=== PATIENT | male | born 2000 | race Hispanic/Latino ===

== ENCOUNTER 2024-06-17 17:35 | Emergency (ER) | payer OTHER, BC ==
[~2024-06-17] VITALS: Ht 170.2 cm; Wt 52.2 kg
[2024-06-17 17:49] VITALS: BP 151/79; PULSE 94; RESP 14; TEMP 98.3; O2SAT 99
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
[2024-06-17] MEDS: CYCLOBENZAPRINE HCL 10 MG TABLET PO ONE (17:56)
[2024-06-17] MEDS: ketOROlac 60 MG VIAL (30MG/ML) IM ONE (17:56)
[2024-06-17] MEDS ORDERED: CYCL-309 PO (18:28)
[2024-06-17] MEDS ORDERED: IBUP-2070 PO (18:28)
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
== END 2024-06-17 18:35 | disposition home or self-care (01) ==
LOC: EDH 17:35
DX: S16.1XXA Strain of muscle, fascia and tendon at neck level, initial encounter (principal); S20.212A Contusion of left front wall of thorax, initial encounter; Z88.0 Allergy status to penicillin; V89.2XXA Person injured in unspecified motor-vehicle accident, traffic, initial encounter; Y93.89 Activity, other specified; Y92.89 Other specified places as the place of occurrence of the external cause; Y99.8 Other external cause status
CPT/HCPCS: 99284; 71045; 72040; 96372; J1885

== ENCOUNTER 2025-01-02 23:41 | Emergency (ER) | payer BC, OTHER ==
[~2025-01-02] VITALS: Ht 170.2 cm; Wt 69.9 kg
[~2025-01-02 23:41] MED LIST: CYCL-309 PO; IBUP-1492 PO
--- NOTE | 2025-01-02 23:48 | NUR ---
TAKEN TO CT
[2025-01-02] MEDS ORDERED: IOHEXOL 350 MG/ML 100ML INFUS..BTL IV ONE (23:56)
--- NOTE | 2025-01-03 00:05 | NUR ---
NO HOME MEDICATIONS
--- NOTE | 2025-01-03 00:26 | NUR ---
BACK FROM CT SCAN
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
[2025-01-03 00:39] LABS: IMMATURE GRANULOCYTE ABSOLUTE 0.11 K/uL (0-1); NUCLEATED RED BLOOD CELLS 0.0 % (0.0-0.19); PLATELET COUNT (AUTO) 281 K/uL (130-400); RED BLOOD CELL COUNT(AUTO) 4.85 MIL/uL (4.50-6.20); RED CELL DISTRIBUTION WIDTH 11.7 % (11.0-15.5); WHITE BLOOD COUNT (AUTO) 12.0 K/uL (4.8-10.8)
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
[2025-01-03 00:50] LABS: INR 1.01 (0.85-1.15)
[2025-01-03 00:53] LABS: ALCOHOL, BLOOD 143.0 mg/dL (0-10); CREATININE 0.9 mg/dL (0.5-1.3); GLOMERULAR FILTR. RATE CALC 123.0 mL/min (>90); GLUCOSE,RANDOM 157.0 mg/dL (70-105); SODIUM SERUM 143.0 mmol/L (136-145); UREA NITROGEN, BLOOD 13.0 mg/dL (7-18)
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
--- NOTE | 2025-01-03 01:50 | NUR ---
4 JENNIFER TO SCALP LACERATION DONE BY DR PEREZ
[2025-01-03] MEDS ORDERED: CLIN-141 PO (03:12)
[2025-01-03 03:25] VITALS: BP 116/78; PULSE 92; RESP 20; TEMP 98; O2SAT 98
--- NOTE | 2025-01-03 06:58 | EKG ---
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
== END 2025-01-03 03:39 | disposition home or self-care (01) ==
LOC: EDH 23:41
DX: S01.01XA Laceration without foreign body of scalp, initial encounter (principal); S46.911A Strain of unspecified muscle, fascia and tendon at shoulder and upper arm level, right arm, initial encounter; Z88.0 Allergy status to penicillin; V86.65XA Passenger of 3- or 4- wheeled all-terrain vehicle (ATV) injured in nontraffic accident, initial encounter; Y93.89 Activity, other specified; Y92.89 Other specified places as the place of occurrence of the external cause; Y99.8 Other external cause status
CPT/HCPCS: 99285; 70450; 82550; 84484; 80048; 85025; 85610; 85730; 36415; 73030; 71260; 74177; 12002; 93005; 96374; 72125; 96375; 90714; 90471; Q9967; J2405; J2270